=== PATIENT | female | born 1990 | race Hispanic/Latino ===

== ENCOUNTER 2024-11-18 04:59 | Inpatient (IN) | payer MEDICAID, OTHER, SELFPAY ==
[2024-11-18 05:21] VITALS: BMI 31.2
[2024-11-18] MEDS ORDERED: hydrALAZINE 20 MG/ML VIAL SLOW IVP PRN ×3 (06:29→18:28)
[2024-11-18] MEDS ORDERED: Carboprost 250 MCG/ML AMP IM PRN (08:35)
[2024-11-18] MEDS ORDERED: Lidocaine 1% (PF) 30 ML VIAL SC PRN (08:35)
[2024-11-18] MEDS ORDERED: Methylergonovine 0.2 MG/ML VIAL IM PRN (08:35)
[2024-11-18] MEDS ORDERED: Acetaminophen 500 MG TAB PO PRN (08:35)
[2024-11-18] MEDS ORDERED: Tranexamic Acid 1,000 MG/10 ML VIAL IVP PRN (08:35)
[2024-11-18] MEDS ORDERED: Misoprostol 200 MCG TAB PR PRN (08:35)
[2024-11-18] MEDS ORDERED: Ondansetron PF 4 MG/2 ML Vial IVP PRN (08:35)
[2024-11-18] MEDS ORDERED: Ibuprofen 800 MG TAB PO PRN (08:35)
[2024-11-18] MEDS ORDERED: Diphenoxylate HCl/Atropine Tablet PO PRN (08:35)
[2024-11-18] MEDS ORDERED: Promethazine HCl 25 MG/ML VIAL IM PRN (08:35)
[2024-11-18] MEDS ORDERED: Lactated Ringer's 1,000 ML IV SCH (08:45)
[2024-11-18] MEDS ORDERED: Oxytocin 30 units/NS 500 ML 500 ML IV SCH (08:45)
[2024-11-18 09:16] LABS: Hematocrit 33.5 % (34.9-44.5); Mean Corpuscular HGB CONC 32.8 g/dL (32.0-36.0); Mean Corpuscular Hemoglobin 29.6 pg (27.0-33.0); Mean Corpuscular Volume 90.3 fL (81.6-98.3); Mean Platelet Volume 10.1 fL (7.4-10.4); Platelet Count 222 10x3/uL (150-450); Red Blood Cell (RBC) Count 3.71 10x6/uL (3.90-5.03); White Blood Cell (WBC) Count 8.83 10x3/uL (3.5-10.5)
[2024-11-18 10:00] LABS: Fetal Membranes Rupture No Membranes Rupture (No Rupture)
[2024-11-18 10:12] LABS: Hep B Surf Ag - L&D Non-Reactive S/CO (NonReactive)
[2024-11-18 10:23] LABS: Syphilis Antibody Nonreactive (Nonreactive)
[2024-11-18] MEDS: Oxytocin 30 units/NS 500 ML 500 ML IV SCH (18:12)
[2024-11-18] MEDS ORDERED: Bisacodyl 10 MG SUPP PR PRN (18:28)
[2024-11-18] MEDS ORDERED: Milk Of Magnesia 30 ML UDCUP PO PRN (18:28)
[2024-11-18] MEDS: Docusate 100 MG CAP PO SCH (22:03)
[2024-11-18] MEDS: Ibuprofen 800 MG TAB PO SCH (22:03)
[2024-11-19] MEDS: Ferrous Sulfate 325 MG TAB PO SCH (10:27)
[2024-11-19] MEDS: Boostrix 0.5 ML (Tdap) VIAL (>/=7 yrs of age) IM ONE (10:27)
[2024-11-19 16:36] VITALS: BP 114/68; TEMP 98.3
[2024-11-19 18:40] LABS: #Basophils 0.04 10x3/uL (0.0-0.2); #Eosinophils 0.09 10x3/uL (0.0-0.5); #Monocytes 0.85 10x3/uL (0.0-1.1); #Neutrophils 11.72 10x3/uL (1.5-8.4); %Basophils 0.3 % (0.0-2.0); %Eosinophils 0.6 % (0.0-6.0); %Lymphocytes 10.6 % (18.0-47.0); %Monocytes 5.9 % (0.0-10.0); Hematocrit 30.6 % (34.9-44.5); Hemoglobin 10.3 g/dL (12.0-15.5); Mean Corpuscular HGB CONC 33.7 g/dL (32.0-36.0); Mean Corpuscular Hemoglobin 30.3 pg (27.0-33.0); Platelet Count 233 10x3/uL (150-450)
== END 2024-11-19 19:25 | disposition home or self-care (01) | DRG 807 ==
LOC: CSHLD/OP 04:59 → CSHLD 08:37 → CSHPP 20:55
PROVIDERS: ADMIT Obstetrics & Gynecology; ATTEND Obstetrics & Gynecology
PROC: 10E0XZZ Delivery of Products of Conception, External Approach (ICD-10-PCS; principal; 2024-11-18)
DX: O71.89 Other specified obstetric trauma (principal); Z37.0 Single live birth; Z3A.37 37 weeks gestation of pregnancy
CPT/HCPCS: 36415; 84112; 85025; 85027; 86780; 86850; 86900; 86901; 87340; 99285; J2590